=== PATIENT | male | born 1955 | race Caucasian/White ===

== ENCOUNTER → 2017-06-16 15:47 | Outpatient (CLI) | payer OTHER, SELFPAY ==
--- NOTE | 2017-06-16 15:54 | RAD_ITS ---
STUDY: X-RAY - LEFT SHOULDER REASON FOR EXAM: Male, 61 years old. Fell on shoulder x1 week, shoulder pain TECHNIQUE: 5 view(s) of the shoulder. COMPARISON: None. FINDINGS: Normal glenohumeral articulation. There is severe hypertrophic osteoarthrosis of the acromioclavicular joint with inferior osseous spur formation. Normal acromion. Normal humeral head and visualized proximal humerus. The soft tissue structures are unremarkable. Normal visualized pulmonary apex. RAD/Shoulder min 2 Views IMPRESSION: There is no acute displaced fracture or dislocation. Severe hypertrophic osteoarthrosis of the AC joint. Electronically Signed: Cecy Baum MD at 4:10 EDT , Service support ,
== END ==
PROVIDERS: Visit Provider Family Medicine
DX: M19.012 Primary osteoarthritis, left shoulder (principal)
CPT/HCPCS: 73030

== ENCOUNTER → 2017-10-29 07:13 | Outpatient (CLI) | payer OTHER, SELFPAY ==
[2017-10-29 08:11] LABS: ALB/GLOB Ratio 1.2 RATIO (0.9-2.4); AST(SGOT) 59 U/L (15-37); Alanine Aminotransfer ALT/SGPT 82 U/L (16-61); Albumin, Serum 3.9 g/dL (3.2-5.0); Alkaline Phosphatase 94 U/L (45-117); Anion Gap 8 (5-15); BUN 24 mg/dL (7-18); Calcium,Total 9.1 mg/dL (8.5-10.1); Chloride 106 mmol/L (98-107); Cholesterol 155 mg/dL (200); Creatinine, Serum 0.67 mg/dL (0.70-1.30); EST Glomerular Filtration Rate 128 mL/min (>60); Est Glom Filt Rate - Afr Amer 155 mL/min (>60); Globulin 3.3 g/dL (2.2-4.2); Glucose 94 mg/dL (74-106); High Density Lipoprotein 59 mg/dL; PSA,Total - Annual Screen 1.29 ng/mL (0.00-4.00); Potassium 4.1 mmol/L (3.5-5.1); Protein, Total 7.2 g/dL (6.4-8.2); Sodium Level 141 mmol/L (136-145); Triglycerides 72 mg/dL; Uric Acid 4.1 mg/dL (3.5-7.2); Very Low Density Lipoprotein 14 mg/dL (5-40)
== END ==
DX: Z00.00 Encounter for general adult medical examination without abnormal findings (principal); Z12.5 Encounter for screening for malignant neoplasm of prostate
CPT/HCPCS: 36415; 80053; 80061; 84153; 84550; G0103

== ENCOUNTER → 2019-10-16 10:31 | Outpatient (CLI) | payer OTHER, SELFPAY ==
[2019-10-16 11:20] LABS: Absolute Lymphocyte Count 3.51 X10^3/uL (0.83-4.51); Absolute Neutrophil Count 5.1 X10^3/uL (2.0-7.7); Basophil# 0.05 X10^3/uL; Basophil% 0.5 % (0-1); Eosinophil# 0.46 X10^3/uL; Eosinophils% 4.5 % (0-5); Hematocrit 46.7 % (40-54); Hemoglobin 15.6 g/dL (13.0-16.5); Lymphocyte # 3.51 X10^3/ul (4.0); Lymphocyte % 34.6 % (19-41); Mean Corp Hgb Conc 33.4 g/dL (32-36); Mean Corpuscular Hgb 31.5 pg (27.0-32.0); Mean Corpuscular Volume 94.2 fL (80-94); Mean Platelet Vol. 9.1 fl (6.2-12.0); Monocyte# 0.99 X10^3/uL; Monocyte% 9.8 % (0-10); NRBC Flagged by Analyzer 0 % (0-5); Neutrophil % 50.3 % (47-70); Platelet Count 319 K/mm3 (150-450); RBC Distribution Width CV 12.5 % (11.6-14.6); RBC Distribution Width SD 43.1 fl (35.1-43.9); Red Blood Count 4.96 M/mm3 (4.6-6.2); White Blood Count 10.1 K/mm3 (4.4-11.0)
[2019-10-16 11:32] LABS: Prothrombin Time (Protime)PT. 12.6 SECONDS (11.7-14.9)
[2019-10-16 11:33] LABS: Partial Thromboplast Time 28.7 Seconds (24.1-36.2)
[2019-10-16 11:59] LABS: ALB/GLOB Ratio 1.4 RATIO (0.9-2.4); AST(SGOT) 45 U/L (15-37); Alanine Aminotransfer ALT/SGPT 48 U/L (16-61); Albumin, Serum 4.1 g/dL (3.2-5.0); Alkaline Phosphatase 105 U/L (45-117); Anion Gap 6 (5-15); BUN 12 mg/dL (7-18); BUN/Creat Ratio 19.4 RATIO (10-20); Calcium,Total 9.5 mg/dL (8.5-10.1); Chloride 107 mmol/L (98-107); Cholesterol 194 mg/dL (200); Creatinine, Serum 0.62 mg/dL (0.70-1.30); EST Glomerular Filtration Rate 139 mL/min (>60); Est Glom Filt Rate - Afr Amer 168 mL/min (>60); Glucose 105 mg/dL (74-106); High Density Lipoprotein 63 mg/dL; PSA,Total - Annual Screen 1.08 ng/mL (0.00-4.00); Potassium 4.2 mmol/L (3.5-5.1); Protein, Total 7.1 g/dL (6.4-8.2); Sodium Level 141 mmol/L (136-145); Triglycerides 70 mg/dL; Very Low Density Lipoprotein 14 mg/dL (5-40)
== END ==
PROVIDERS: Referring Provider Family Medicine; Visit Provider Family Medicine
DX: Z01.812 Encounter for preprocedural laboratory examination (principal); Z12.5 Encounter for screening for malignant neoplasm of prostate
CPT/HCPCS: 36415; 80053; 80061; 84153; 85025; 85610; 85730; G0103

== ENCOUNTER 2019-11-29 01:03 | Emergency (ER) | payer OTHER, SELFPAY ==
[2019-11-29 01:04] VITALS: BP 139/89; PULSE 72; RESP 18; TEMP 37.2; O2SAT 96; BMI 32.0
[2019-11-29] MEDS: Bupivacaine Mpf 0.5% 30 ML VIAL INFILT (01:16)
--- NOTE | 2019-11-29 02:30 | ED.DCSUM_ITS ---
History of Present Illness Chief Complaint: Laceration Informant: Patient Onset: Today Context: Sudden Onset Timing: Continuous Current Severity: Mild Maximum Severity: Mild Narrative: The patient is a 64-year-old male who was in his normal state of health that presents to the emergency department with right ear laceration. The patient recently had a knee replacement. He states that his balance is mildly unsteady's from this. He got up to use the restroom and lost his balance in the hallway. He fell striking his right ear against a potted plant. He had immedia te pain and bleeding. He did not lose consciousness. He denies any headache or visual change. He is on baby aspirin since his knee replacement but no other anticoagulants. He presented here immediately for evaluation. Prior similar symptoms: No Recent Illness/Hospitalization: No Past Medical History - Allergies and Home Meds Allergies/Adverse Reactions: Allergies codeine Allergy (Verified 11/29/19 01:06) Rash Primary Care Physician: Lamont Kim MD [Primary Care Provider] - 3-5 Days Prior records reviewed: Yes Past Medical History: - - Hypertension, arthritis Surgical History: noncontributory Smoking Status: Never smoker Review of Systems General: Denies: Chills, Fever, Sweats Eyes: Denies: Visual changes - bilaterally, Diplopia ENT: Denies: Rhinorrhea, Sore throat Cardiovascular: Denies: Chest pain, Palpitations Respiratory: Denies: Dyspnea, Cough, Dyspnea on exertion Gastrointestinal: Denies: Abdominal pain, Nausea, Vomiting, Diarrhea, Melena, Hematochezia Genitourinary: Denies: Dysuria, Hematuria, Frequency Musculoskeletal: Denies: Back pain, Extremity Pain Skin: Denies: Rash, Wounds Neurological: Denies: Headache, Weakness, Numbness Physical Exam Vital Signs/Narrative: Vital Signs Temp Pulse Resp BP Pulse Ox 11/29/19 01:04 98.9 F 72 18 139/89 H 96 Inital Vital Signs reviewed: Yes General: Well nourished, Well developed, No Acute Distress Head: Normocephalic, Atraumatic Eyes: Perrl, EOMI ENT: Moist mucous membranes, No rhinorrhea, - - Patient has full-thickness laceration from the helix of the ear. It is 3 cm in total length. It does involve the cartilage. The drum itself is intact. Neck: Supple, Nontender Cardiovascular: Regular rate, Regular rhythm, No murmurs Respiratory: No distress, CTA bilaterally, Chest nontender Abdomen: Soft, Nontender, Nondistended, Normal bowel sounds Back: Nontender, Normal Inspection Extremities: Nontender, No edema Skin: Normal color, No rash Neurological: Alert, Oriented x3, Cranial nerves II-XII grossly intact, Normal Strength, Normal Sensation Psychological: Normal affect, Normal Mood Diagnostic/Tx/Re-eval - Medical Decision Making Patient presents with complexly ear laceration. There is laceration through the cartilaginous process. It is approximately at the 8 o'clock position of the ear. 3 cc bupivacaine were injected locally. The wound was irrigated and explored. The cartilage was reapproximated with 2 simple 5-0 Vicryl absorbable suture. The attention was then turned to the skin defect of the through and through. It was repaired with 14 5-0 rapid absorbing gut suture. There was no evidence of hematoma. Hemostasis was achieved. There was good reapproximation of the skin. As there was cartilage defect, the patient will be placed on Keflex. I will have him follow-up for wound reevaluation in 3 to 5 days. He was also counseled that this is worsening or painful or have any drainage that he should return. He is comfortable with this plan of care. Impression 1. Complex 4 cm right ear laceration with layered repair ED Disposition - Plan for ED Patient: Instructions: ED Laceration All Closures Prescriptions: Cephalexin [Keflex] 500 mg PO Q12 #14 cap Prescription Printed Referrals: Lamont Kim MD [Primary Care Provider] - 3-5 Days
[2019-11-29] MEDS: Cephalexin 250 MG Capsule 500 MG PO (02:37)
[2019-11-29 02:38] VITALS: PULSE 72; RESP 16; O2SAT 97
== END 2019-11-29 02:40 | disposition home or self-care (01) ==
LOC: ED 01:17
PROVIDERS: Emergency Provider Emergency Medicine; PCP Family Medicine
DX: S01.311A Laceration without foreign body of right ear, initial encounter (principal); W18.39XA Other fall on same level, initial encounter; Y93.01 Activity, walking, marching and hiking; Y92.9 Unspecified place or not applicable; I10 Essential (primary) hypertension; M19.90 Unspecified osteoarthritis, unspecified site; Z79.82 Long term (current) use of aspirin; Z79.899 Other long term (current) drug therapy
CPT/HCPCS: 12052; 99283

== ENCOUNTER → 2019-12-24 10:56 | Outpatient (CLI) | payer OTHER, SELFPAY ==
[2019-11-29 01:04] VITALS: BMI 32.0
--- NOTE | 2019-12-24 10:58 | VDLE_ITS ---
Reason For Study: pain RIGHT GSV is normal. CFV is compressible, spontaneous, phasic, competent and demonstrates normal augmentation. FV is compressible, spontaneous, phasic, competent and demonstrates normal augmentation. POP V is compressible, spontaneous, phasic, competent and demonstrates normal augmentation. T/P Trunk is compressible. PTV is compressible. RT PerV is compressible. Procedure This is a venous duplex using B-mode, color flow and spectral Doppler. Exam performed in department. The exam was abbreviated due to the COVID 19 protocol. The exam was diagnostic. A preliminary report was called and/or faxed to Edvin Lira. Interpretation Summary Deep veins of the right lower extremity are patent and compressible segmentally. There is no evidence of right lower extremity deep vein thrombosis. Valvular competence appears intact within the proximal deep venous system on the right . The right great saphenous vein appears patent and compressible segmentally. Ordering Physician: Edvin Lira Performed By: Speedy Brito RVT
== END ==
PROVIDERS: PCP Family Medicine; Referring Provider Physician Assistant Surgical; Visit Provider Physician Assistant Surgical
DX: M79.661 Pain in right lower leg (principal)
CPT/HCPCS: 93971

== ENCOUNTER → 2020-01-13 15:24 | Outpatient (CLI) | payer OTHER, SELFPAY ==
--- NOTE | 2020-01-13 15:26 | CT_ITS ---
HISTORY: Right knee replacement. No comparison imaging of the right knee. Technique: Contiguous helical images were obtained from the right iliac wing to the foot. Sagittal and coronal 2-D reformats. 1768 images Comparison imaging of the left leg is present from August 23, 2014 angiogram. Some of the right leg is available on that exam. Findings: Anterior subluxation of L5 on S1 with degenerative disc disease. Some right SI joint arthritis. Some right patellofemoral arthritis. The urinary bladder is mostly decompressed. Calcifications are present within the prostate. Within the distal third diaphysis of the right femur there are some popcorn-like calcification centrally within the medullary cavity consistent with a sclerotic enchondroma. There is no endosteal scalloping. There is no erosion of bone. There is no soft tissue component. There is no associated fracture. Tricompartment knee osteoarthritis is present. Chondrocalcinosis. Osteophytes. Joint space loss. Tiny knee effusion. Patellofemoral arthritis with lateral subluxation of the patella on the trochlear groove. Atherosclerosis. No osseous erosion. CT/Extremity Lower without Contra IMPRESSION: Benign-appearing enchondroma within the distal third diaphysis of the left femur. Tricompartment left knee arthritis. Individualized dose optimization techniques were used for this CT. at 0501 Reported and signed by: Castro Ohara MD Electronically Signed: Castro Ohara MD at 5:00 EST Tel , Service support ,
== END ==
PROVIDERS: PCP Family Medicine; Referring Provider Specialist; Visit Provider Specialist
DX: M21.161 Varus deformity, not elsewhere classified, right knee (principal)
CPT/HCPCS: 73700

== ENCOUNTER → 2020-01-29 09:58 | Outpatient (CLI) | payer OTHER, SELFPAY ==
[2020-01-29 10:32] LABS: Absolute Lymphocyte Count 3.19 X10^3/uL (0.83-4.51); Absolute Neutrophil Count 6.9 X10^3/uL (2.0-7.7); Basophil# 0.04 X10^3/uL; Basophil% 0.3 % (0-1); Eosinophil# 0.36 X10^3/uL; Eosinophils% 3.1 % (0-5); Hematocrit 43.5 % (40-54); Hemoglobin 14.2 g/dL (13.0-16.5); Lymphocyte # 3.19 X10^3/ul (4.0); Lymphocyte % 27.6 % (19-41); Mean Corp Hgb Conc 32.6 g/dL (32-36); Mean Corpuscular Hgb 31.5 pg (27.0-32.0); Mean Corpuscular Volume 96.5 fL (80-94); Mean Platelet Vol. 8.7 fl (6.2-12.0); Monocyte% 8.7 % (0-10); NRBC Flagged by Analyzer 0 % (0-5); Neutrophil # 6.91 X10^3/uL (2.7-7.7); Neutrophil % 59.8 % (47-70); Platelet Count 356 K/mm3 (150-450); RBC Distribution Width CV 12.8 % (11.6-14.6); RBC Distribution Width SD 45.3 fl (35.1-43.9); Red Blood Count 4.51 M/mm3 (4.6-6.2); White Blood Count 11.6 K/mm3 (4.4-11.0)
[2020-01-29 10:42] LABS: Anion Gap 3 (5-15); BUN 14 mg/dL (7-18); BUN/Creat Ratio 20.1 RATIO (10-20); Calcium,Total 9.2 mg/dL (8.5-10.1); Chloride 109 mmol/L (98-107); EST Glomerular Filtration Rate 121 mL/min (>60); Est Glom Filt Rate - Afr Amer 147 mL/min (>60); Glucose 104 mg/dL (74-106); Potassium 4.1 mmol/L (3.5-5.1); Sodium Level 142 mmol/L (136-145)
== END ==
PROVIDERS: PCP Family Medicine; Referring Provider Specialist; Visit Provider Specialist
DX: Z01.812 Encounter for preprocedural laboratory examination (principal); Z79.01 Long term (current) use of anticoagulants
CPT/HCPCS: 36415; 80048; 85025

== ENCOUNTER → 2020-02-09 | Outpatient (CLI) | payer OTHER, SELFPAY ==
[2020-02-09 13:30] LABS: Absolute Lymphocyte Count 3.93 X10^3/uL (0.83-4.51); Absolute Neutrophil Count 10.5 X10^3/uL (2.0-7.7); Basophil# 0.03 X10^3/uL; Basophil% 0.2 % (0-1); Eosinophil# 0.07 X10^3/uL; Eosinophils% 0.4 % (0-5); Lymphocyte # 3.93 X10^3/ul (4.0); Lymphocyte % 23.4 % (19-41); Mean Corp Hgb Conc 32.5 g/dL (32-36); Mean Corpuscular Hgb 31.1 pg (27.0-32.0); Mean Corpuscular Volume 95.7 fL (80-94); Mean Platelet Vol. 9.2 fl (6.2-12.0); Monocyte# 2.15 X10^3/uL; Monocyte% 12.8 % (0-10); NRBC Flagged by Analyzer 0 % (0-5); Neutrophil # 10.54 X10^3/uL (2.7-7.7); Neutrophil % 62.8 % (47-70); POSITIVE DIFFERENTIAL YES; Platelet Count 348 K/mm3 (150-450); RBC Distribution Width CV 13.2 % (11.6-14.6); RBC Distribution Width SD 46.7 fl (35.1-43.9); Red Blood Count 4.18 M/mm3 (4.6-6.2); White Blood Count 16.8 K/mm3 (4.4-11.0)
[2020-02-09 13:31] LABS: Differential Indicated SCAN CRITERIA MET
[2020-02-09 13:51] LABS: ALB/GLOB Ratio 1.2 RATIO (0.9-2.4); AST(SGOT) 273 U/L (15-37); Alanine Aminotransfer ALT/SGPT 371 U/L (16-61); Albumin, Serum 3.6 g/dL (3.2-5.0); Alkaline Phosphatase 193 U/L (45-117); Anion Gap 5 (5-15); BUN 16 mg/dL (7-18); BUN/Creat Ratio 24.5 RATIO (10-20); CPK Total, Creatine Kinase 330 U/L (39-308); Calcium,Total 9.5 mg/dL (8.5-10.1); Chloride 106 mmol/L (98-107); Creatinine, Serum 0.65 mg/dL (0.70-1.30); EST Glomerular Filtration Rate 131 mL/min (>60); Est Glom Filt Rate - Afr Amer 158 mL/min (>60); Globulin 3.1 g/dL (2.2-4.2); Glucose 89 mg/dL (74-106); Potassium 3.7 mmol/L (3.5-5.1); Protein, Total 6.7 g/dL (6.4-8.2); Sodium Level 139 mmol/L (136-145); Thyroid Stim Hormone (TSH) 1.11 uIU/mL (0.358-3.74)
[2020-02-10 12:06] LABS: Pathologist Review Reviewed
== END | disposition home or self-care (01) ==
LOC: LABSPEC 13:15
PROVIDERS: PCP Family Medicine; Referring Provider Nurse Practitioner; Visit Provider Nurse Practitioner
DX: I48.91 Unspecified atrial fibrillation (principal)
CPT/HCPCS: 80053; 82550; 84443; 84484; 85025

== ENCOUNTER → 2020-02-28 09:42 | Outpatient (CLI) | payer OTHER, SELFPAY ==
[2020-02-11 12:33] VITALS: BMI 29.1
--- NOTE | 2020-02-28 09:44 | ECHOD_ITS ---
Reason For Study: AFIB Procedure This was a 2D Doppler, Color Flow transthoracic echocardiogram. Exam performed in department. Left Ventricle Normal LV size. Left ventricular systolic function is normal. The estimated ejection fraction is 65 %. No regional wall motion abnormalities noted. Atria The left atrium is moderately enlarged. Normal right atrium. Tricuspid Valve Normal tricuspid valve. Mild tricuspid valve insufficiency. Pulmonary artery systolic pressure is 38 mmHg. Aortic Valve Trisinus/trileaflet aortic valve. Mild (1+) aortic valve insufficiency. Pulmonic Valve Normal pulmonic valve. Great Vessels Normal aortic root. The pulmonary artery is normal size. Normal inferior vena cava. Pericardium/Pleural No pericardial effusion. MMode/2D Measurements & Calculations LVIDd: 4.9 cm IVSd: 0.95 cm Ao root diam: 4.4 cm LVIDs: 3.2 cm LVPWd: 1.0 cm RVDd: 3.7 cm FS: 34.4 % LAV(MOD-bp): 97.6 ml LA A4 area: 25.7 cm2 LA dimension(2D): 4.8 cm LAV(MOD-bp) Indexed: 44.0 ml/m2 LAV(MOD-sp2): 105.4 ml LAV(MOD-sp4): 84.4 ml RA A4 area: 21.5 cm2 Time Measurements MV dec time: 0.13 sec Doppler Measurements & Calculations MV E max karena: 97.7 cm/sec Ao V2 max: 169.7 cm/sec AI max karena: 525.6 cm/sec Ao max P.8 mmHg AI max P.5 mmHg AI dec slope: 299.3 cm/sec2 AI P1/2t: 514.4 msec LV V1 max: 130.6 cm/sec PA V2 max: 126.0 cm/sec TR max karena: 294.6 cm/sec LV V1 max P.4 mmHg TR max P.7 mmHg Interpretation Summary Normal LV size. Left ventricular systolic function is normal. The estimated ejection fraction is 65 %. Mild (1+) aortic valve insufficiency. Mild tricuspid valve insufficiency. Ordering Physician: Randal Friedman Referring Physician: DRAKE MENDOZA Performed By: Akila Haney, RANJAN, RVT
== END ==
PROVIDERS: PCP Family Medicine; Referring Provider Internal Medicine Cardiovascular Disease; Visit Provider Internal Medicine Cardiovascular Disease
DX: I48.0 Paroxysmal atrial fibrillation (principal); I48.92 Unspecified atrial flutter
CPT/HCPCS: 93306

== ENCOUNTER → 2020-03-10 09:58 | Outpatient (CLI) | payer OTHER, SELFPAY ==
[2020-03-10 08:11] VITALS: BMI 29.5
[2020-03-10 12:08] LABS: Anion Gap 5 (5-15); BUN 15 mg/dL (7-18); BUN/Creat Ratio 23.3 RATIO (10-20); Calcium,Total 9.7 mg/dL (8.5-10.1); Chloride 106 mmol/L (98-107); Creatinine, Serum 0.64 mg/dL (0.70-1.30); EST Glomerular Filtration Rate 133 mL/min (>60); Est Glom Filt Rate - Afr Amer 161 mL/min (>60); Glucose 103 mg/dL (74-106); Potassium 4.2 mmol/L (3.5-5.1); Sodium Level 141 mmol/L (136-145)
== END ==
PROVIDERS: PCP Family Medicine; Referring Provider Internal Medicine Cardiovascular Disease; Visit Provider Internal Medicine Cardiovascular Disease
DX: I48.91 Unspecified atrial fibrillation (principal)
CPT/HCPCS: 36415; 80048

== ENCOUNTER 2020-03-14 10:38 | Day surgery (SDC) | payer OTHER, SELFPAY ==
[2020-03-10 08:11] VITALS: BMI 29.5
[2020-03-13 09:29] VITALS: BMI 29.5
--- NOTE | 2020-03-14 05:00 | HP_ITS ---
HPI HPI History of Present Illness Details: Pleasant 64-year-old man with no previous cardiac history other than hypertension and hyperlipidemia obstructive sleep apnea who presents for evaluation of his atrial fibrillation which appears to be recent onset. He was scheduled to have right total knee replacement and went into atrial fibrillation. This was completely unbeknownst to him he denies any chest pain or shortness with paroxysmal nocturnal dyspnea pedal edema no neck arm or jaw discomfort suggest angina no dizziness or diaphoresis no near syncope or syncope. He has been compliant with his medications. He returns for follow-up visit. He has been on anticoagulation since his last visit. He did have an echocardiogram performed which demonstrated preserved ejection fraction and normal atrial size. His estimated EF was 65%. His physical exam today is unremarkable. Intake Vital Signs 03/10/20 Height 6 ft 1 in 03/10/20 Weight: 224 lb 03/10/20 BMI 29.5 03/10/20 BP 137/94 H 03/10/20 Respiration 16 03/10/20 Pulse 96 03/10/20 Pulse Oximetry (%) 98 Intake Visit Reasons: 5 wk f/up Allergies codeine Allergy (Verified 03/10/20 08:11) Rash Medications Albuterol Inhaler [Ventolin Hfa (SP)] 1 - 2 puff INHALATION Q4H PRN PRN 08/23/14 [History Confirmed 03/10/20] Allopurinol [Zyloprim] 100 mg PO DAILYCM 08/23/14 [History Confirmed 03/10/20] Montelukast [Singulair] 10 mg PO DAILY 08/23/14 [History Confirmed 03/10/20] Sertraline HCl [Zoloft] 100 mg PO DAILY 08/23/14 [History Confirmed 03/10/20] Zolpidem Tartrate [Ambien] 10 mg PO QHS 08/23/14 [History Confirmed 03/10/20] apixaban 5 mg tablet 5 mg PO BID 02/11/20 [History Confirmed 03/10/20] atenolol 25 mg tablet 25 mg PO DAILY 02/11/20 [History Confirmed 03/10/20] diphenhydramine HCl 50 mg capsule 50 mg PO QHS 02/11/20 [History Confirmed 03/10/20] famotidine 20 mg tablet 20 mg PO DAILY 02/11/20 [History Confirmed 03/10/20] fexofenadine 180 mg tablet 180 mg PO DAILY 02/11/20 [History Confirmed 03/10/20] fluticasone furoate 100 mcg-vilanterol 25 mcg/dose inhalation powder 1 inh INHALATION Q24H 02/11/20 [History Confirmed 03/10/20] lovastatin 20 mg tablet 20 mg PO QHS tab 02/11/20 [History Confirmed 03/10/20] oxycodone 5 mg tablet 5 mg PO Q6H PRN tab 02/11/20 [History Confirmed 03/10/20] valsartan 160 mg-hydrochlorothiazide 12.5 mg tablet 1 tab PO DAILY 02/11/20 [History Confirmed 03/10/20] Ejection fraction %: 65 to 70 PFSH Medical History New onset atrial fibrillation (Chronic 02/2020) Hyperlipidemia (Chronic) Essential (primary) hypertension (Chronic) Anxiety and depression (Chronic) Asthma (Chronic) Charcot's joint of foot (Chronic) Gout (Chronic) Neuropathy (Chronic) Obesity (Chronic) Obstructive sleep apnea (Chronic) Postoperative atrial fibrillation (Chronic 02/08/20) Surgical History History of foot surgery (Resolved) History of total knee arthroplasty (Resolved 02/08/20) Family History Father Hypertension Atrial fibrillation Mother Hypertension Grandmother Diabetes maternal Cancer Grandfather Cancer maternal Social History (Updated 03/10/20 @ 09:[address] Randal Friedman MD) Smoking Status: Current some day smoker tobacco type: cigars ROS Const Const: Positive for fatigue and weakness; negative for headache(s), frequent falls, difficulty sleeping or excessive sweating Eyes Eyes: Negative for loss of peripheral vision, transient loss of vision, blurry vision, double vision or tunnel vision ENT ENT: Negative for headache(s), dizziness, Nosebleed/epistaxis or balance problems Cardio Chest Pain: No Palpitations: No Edema: None Muscle aches with walking: None Additional Details: Feeling fatigued and SOB with activity d/t increase HR Resp Respiratory: Negative for SOB with activity, SOB at rest, SOB orthopnea\SOB lying down, Cough or paroxysmal nocturnal dyspnea GI GI: Negative nausea, vomiting, heartburn or black,tarry stools : Negative for hematuria Musc Musc: Positive for joint pain (right knee); negative for muscle aches/ myalgia, muscle weakness or balance problems Skin Skin: Negative non-healing lesions, rash or unusual bruising Neuro Neuro: Positive for weakness; negative for dizziness, lightheadedness, near syncope, syncope, orthostatic symptoms, frequent falls, headache(s), blurry vision, double vision or lack of coordination Jagjit Hematologic/Lymphatic: Negative for easy bleeding or easy bruising Endo Endo: Positive for fatigue; negative for excessive sweating or increased thirst/drinking Psych Psych: Negative for anxiety or depression Allergy Allergy/Immunology: Negative for hives, Negative for rash Cardiology Exam Const Appearance: cooperative, healthy appearing, no acute distress, well developed and well groomed Nutritional Appearance: average body habitus and well nourished Orientation: alert, awake and oriented x3 Head Head: normal to inspection, normocephalic and atraumatic Ears: hearing grossly normal bilaterally and external ears normal Nose: external nose normal, nares normal, nasal mucous membranes and turbinates normal, septum normal, no nasal discharge Face and Sinus: face symmetric Mouth: oral mucosae normal, tongue normal, oropharynx normal and moist mucous membranes Teeth and gingiva: dentition normal Throat: posterior oropharynx normal, tonsils normal and uvula midline Eyes General: appearance normal, both eyes and all related structures Eyelids: eyelids normal Conjunctivae: conjunctivae normal Pupils: PERRL, normal by confrontation and accommodation normal EOM: EOM intact bilaterally Neck Neck: normal visual inspection, trachea midline and no JVD JVD: +5 Carotids: normal carotid upstroke and bounding pulses Chest Chest inspection: normal inspection of the chest, symmetric chest movement and normal respiratory effort Auscultation: Bilateral: Clear to Auscultation Cardio Palpation: normal PMI Rate: regular rate Rhythm: irregular rhythm Heart sounds: S1 normal, S2 normal and normal, physiologic split S2; negative rub, gallop or murmur GI GI: normal to inspection, soft, no hepatosplenomegaly and bowel sounds present Neuro General: alert, awake, oriented x3, gait normal, moves all extremities and no focal sensory deficit Skin Skin: no rashes or lesions noted Extremities Pulses: Normal: Right Femoral Pulse, Left Femoral Pulse, Right Dorsalis Pedis Pulse, Left Dorsalis Pedis Pulse, Right Posterior Tibial Pulse, Left Posterior Tibial Pulse, Right Radial Pulse, Left Radial Pulse Lower Extremity Edema: None: Bilateral Musculoskel Musculoskeletal: No joint tenderness Psych Psychological: normal affect Assessment & Plan 1. New onset atrial fibrillation I48.91 Plan He appears to have recent onset atrial fibrillation with a controlled ventricular response rate. My recommendation at this time is for him to undergo a DC cardioversion. The risk benefits alternatives have been explained to him he understands and agrees to proceed. I have also instructed him that he can take his meloxicam for knee pain. He could take an antacid if he is having any issues. Orders Orders: Cardioversion Today Basic Metabolic Profile (BMP) Today 2. Essential (primary) hypertension I10 Plan Does have a history of hypertension and this appears to be controlled he will continue with his valsartan as well as his beta-felix. Coding Level of Care Code Off vis,est,level 3 Diagnoses New onset atrial fibrillation I48.91 Essential (primary) hypertension I10 Coding Level of Care Code Off vis,est,level 3 Diagnoses New onset atrial fibrillation I48.91 Essential (primary) hypertension I10 Supplemental Info Supplemental Information Labs LDL Cholesterol 117 mg/dL (0-130) 10/16/19 HDL Cholesterol 63 mg/dL (40-) 10/16/19 Triglycerides 70 mg/dL (-199) 10/16/19 VLDL Cholesterol 14 mg/dL (5-40) 10/16/19 Diagnostics Echocardiogram 02/28/20 Venous Doppler Study 12/24/19
--- NOTE | 2020-03-14 12:40 | CARDIOVERS ---
Cardioversion Cardioversion: DC cardioversion. 64-year-old man with a history of persistent atrial fibrillation. The patient was brought to the cardiac catheterization lab in the postabsorptive nonsedated state. Patient was seen by Dr. Hood of the critical care division. Informed consent was obtained. Anterior posterior pads were applied. The patient was then administered 60 mg of intravenous propofol. 200 J of synchronized DC biphasic cardioversion energy were applied. There was prompt reversal to sinus rhythm. However this lasted less than a minute. The patient was then readministered 40 mg of intravenous propofol for total of 100 mg of propofol. 200 J of synchronized DC cardioversion energy were applied with prompt reversal to sinus rhythm. Once again this lasted less than a minute. The procedure was then discontinued. Conclusion and plan. Unsuccessful DC cardioversion and maintaining sinus rhythm. Would recommend starting flecainide 100 mg twice a day for 2 weeks and repeat cardioversion. Continue anticoagulation.
--- NOTE | 2020-03-14 13:57 | PRO.PCM_ITS ---
Procedure Report Date of Procedure: 03/14/20 CONSCIOUS SEDATION REPORT DATE OF SERVICE: March 14, 2020 BRIEF HISTORY OF PRESENT ILLNESS: The patient is a 64-year-old male who presented to [facility] for an elective outpatient cardioversion due to underlying atrial fibrillation. The patient is currently anticoagulated on Eliquis. His last surface echocardiogram revealed an ejection fraction of approximately 65%. The patient denies any known prior anesthetic complications. He does have a history of asthma which is currently controlled on an outpatient maintenance inhaler regimen. He denies a history of obstructive sleep apnea. PHYSICAL EXAMINATION: VITAL SIGNS: Reviewed and were acceptable. GENERAL: The patient is a male, in no apparent distress, speaking in full sentences. HEENT: Normocephalic, atraumatic. Mucous membranes are moist and pink. Good mouth opening noted. Trachea is midline. Good neck mobility. CHEST: S1, S2 irregularly irregular. No murmurs, rubs or gallops were noted. LUNGS: Clear to auscultation bilaterally without appreciable wheezes, rales or rhonchi. ABDOMEN: Soft, nontender, nondistended. Positive bowel sounds. EXTREMITIES: There is no clubbing, cyanosis or edema. ASA Class: II DESCRIPTION OF PROCEDURE: After confirmation of informed consent, the patient's anesthesia plan was reviewed in detail. Propofol was chosen. Risks and benefits were reviewed and the patient agreed to proceed. At 1206, the patient was given his first bolus of propofol. In total, the patient required 100 mg of propofol to achieve an appropriate level of sedation, after which time he received 2 separate attempts at cardioversion, both at 200 J, neither of which was successful in restoring normal sinus rhythm. The patient was monitored until 1217, at which time he reached his baseline mental status and function. The patient tolerated the procedure well. COMPLICATIONS: None ESTIMATED BLOOD LOSS: None RECOMMENDATIONS: Okay to recover in usual fashion. 9xxxx: Other Procedure See Report - [id number]
== END 2020-03-14 13:15 | disposition home or self-care (01) ==
LOC: CLSP 10:39
PROVIDERS: PCP Family Medicine; Referring Provider Internal Medicine Cardiovascular Disease; Visit Provider Internal Medicine Cardiovascular Disease
DX: I48.91 Unspecified atrial fibrillation (principal); I10 Essential (primary) hypertension; E78.5 Hyperlipidemia, unspecified; J45.909 Unspecified asthma, uncomplicated; M1A.9XX0 Chronic gout, unspecified, without tophus (tophi); F32.9 Major depressive disorder, single episode, unspecified; F41.9 Anxiety disorder, unspecified; F17.290 Nicotine dependence, other tobacco product, uncomplicated; E66.9 Obesity, unspecified; Z68.29 Body mass index [BMI] 29.0-29.9, adult; Z79.01 Long term (current) use of anticoagulants; Z79.899 Other long term (current) drug therapy
CPT/HCPCS: 92960; 93005; J7040

== ENCOUNTER 2020-03-28 12:31 | Day surgery (SDC) | payer OTHER, SELFPAY ==
[2020-03-13 09:29] VITALS: BMI 29.5
[2020-03-27 08:57] VITALS: BMI 29.5
--- NOTE | 2020-03-28 13:46 | CARDIOVERS ---
Cardioversion Cardioversion: Procedure: DC cardioversion. 64-year-old male with a history of persistent atrial fibrillation. The patient was brought to cardiac catheterization lab in the postabsorptive nonsedated state. The patient was seen by Dr. Hood of the critical care division. Anterior-posterior pads were applied. Informed consent was obtained. The patient was then administered 80 mg of intravenous propofol. 200 J of synchronized biphasic energy were applied with prompt reversal to sinus rhythm. Patient tolerated the procedure well. Conclusion: Successful DC cardioversion to sinus rhythm. Continue flecainide and Eliquis. Follow-up with office protocol.
--- NOTE | 2020-03-28 13:49 | PRO.PCM_ITS ---
Procedure Report Date of Procedure: 03/28/20 CONSCIOUS SEDATION REPORT DATE OF SERVICE: March 28, 2020 BRIEF HISTORY OF PRESENT ILLNESS: The patient is a 64-year-old male who presented to [facility] for an elective outpatient cardioversion due to underlying atrial fibrillation. The patient did undergo a prior cardioversion on March 14, which was unsuccessful. The patient remains anticoagulated on Eliquis. His last surface echocardiogram revealed an ejection fraction of approximately 65%. The patient denies any known prior anesthetic complications. PHYSICAL EXAMINATION: VITAL SIGNS: Reviewed and were acceptable. GENERAL: The patient is a male, in no apparent distress, speaking in full sentences. HEENT: Normocephalic, atraumatic. Mucous membranes are moist and pink. Good mouth opening noted. Trachea is midline. Good neck mobility. CHEST: S1, S2 irregularly irregular. No murmurs, rubs or gallops were noted. LUNGS: Clear to auscultation bilaterally without appreciable wheezes, rales or rhonchi. ABDOMEN: Soft, nontender, nondistended. Positive bowel sounds. EXTREMITIES: There is no clubbing, cyanosis or edema. ASA Class: II DESCRIPTION OF PROCEDURE: After confirmation of informed consent, the patient's anesthesia plan was reviewed in detail. Propofol was chosen. Risks and benefits were reviewed and the patient agreed to proceed. At 1337, the patient was given his first bolus of propofol. In total, the patient required 80 mg of propofol to achieve an appropriate level of sedation, after which time, he received a 200 J synchronized cardioversion by Dr. Friedman at the bedside. This was successful in achieving normal sinus rhythm. The patient was monitored until 1348, at which time he reached his baseline mental status and function. The patient tolerated the procedure well. COMPLICATIONS: None ESTIMATED BLOOD LOSS: None RECOMMENDATIONS: Okay to recover in usual fashion. 9xxxx: Other Procedure See Report - [id number]
== END 2020-03-28 14:44 | disposition home or self-care (01) ==
LOC: CLSP 12:31
PROVIDERS: PCP Family Medicine; Referring Provider Internal Medicine Cardiovascular Disease; Visit Provider Internal Medicine Cardiovascular Disease
DX: I48.19 Other persistent atrial fibrillation (principal); I10 Essential (primary) hypertension; E78.5 Hyperlipidemia, unspecified; G47.33 Obstructive sleep apnea (adult) (pediatric); F41.9 Anxiety disorder, unspecified; F32.9 Major depressive disorder, single episode, unspecified; M10.9 Gout, unspecified; E66.9 Obesity, unspecified; Z68.29 Body mass index [BMI] 29.0-29.9, adult; J45.909 Unspecified asthma, uncomplicated; G62.9 Polyneuropathy, unspecified; Z79.01 Long term (current) use of anticoagulants; Z79.899 Other long term (current) drug therapy
CPT/HCPCS: 92960; 93005; J7040

== ENCOUNTER → 2020-07-10 12:54 | Outpatient (CLI) | payer OTHER, SELFPAY ==
[2020-03-27 08:57] VITALS: BMI 29.5
--- NOTE | 2020-07-10 12:56 | ECHOD_ITS ---
Reason For Study: AFIB Procedure This was a 2D Doppler, Color Flow transthoracic echocardiogram. Exam performed in department. Left Ventricle Normal LV size. Left ventricular systolic function is normal. The estimated ejection fraction is 60 %. No regional wall motion abnormalities noted. Right Ventricle Normal RV size. Normal systolic function. Atria The left atrium is moderately enlarged. Normal right atrium. Mitral Valve Normal mitral valve. Tricuspid Valve Normal tricuspid valve. Mild (1+) tricuspid valve insufficiency. Pulmonary artery systolic pressure is 38 mmHg. Aortic Valve Normal aortic valve. Trisinus/trileaflet aortic valve. Mild (1+) aortic valve insufficiency. Pulmonic Valve Normal pulmonic valve. Great Vessels Normal aortic root. Pericardium/Pleural No pericardial effusion. MMode/2D Measurements & Calculations LVIDd: 5.2 cm IVSd: 0.91 cm Ao root diam: 4.0 cm LVIDs: 3.6 cm LVPWd: 0.88 cm RVDd: 3.1 cm FS: 31.4 % LAV(MOD-bp): 95.2 ml LA A4 area: 29.6 cm2 LA dimension(2D): 4.2 cm LAV(MOD-bp) Indexed: 42.9 ml/m2 LAV(MOD-sp2): 84.6 ml LAV(MOD-sp4): 102.7 ml RA A4 area: 15.4 cm2 Time Measurements MV dec time: 0.17 sec Doppler Measurements & Calculations MV E max alexis: 90.7 cm/sec Lat Peak E' Alexis: 9.7 cm/sec Med Peak E' Alexis: 6.9 cm/sec MV A max alexis: 69.1 cm/sec E/E' lat: 9.4 E/E' med: 13.1 MV E/A: 1.3 Ao V2 max: 153.9 cm/sec AI max alexis: 527.2 cm/sec LV V1 max: 143.7 cm/sec Ao max P.5 mmHg AI max P.2 mmHg LV V1 max P.3 mmHg AI dec slope: 327.5 cm/sec2 AI P1/2t: 471.6 msec TR max alexis: 292.4 cm/sec TR max P.2 mmHg ECHO/Echo Complete Interpretation Summary Normal LV size. Left ventricular systolic function is normal. The estimated ejection fraction is 60 %. The left atrium is moderately enlarged. Trisinus/trileaflet aortic valve. Mild (1+) aortic valve insufficiency. Ordering Physician: Randal Friedman Referring Physician: DRAKE MENDOZA Performed By: Akila Haney, RDCS, RVT
== END ==
PROVIDERS: PCP Family Medicine; Referring Provider Internal Medicine Cardiovascular Disease; Visit Provider Internal Medicine Cardiovascular Disease
DX: I48.11 Longstanding persistent atrial fibrillation (principal); R06.00 Dyspnea, unspecified
CPT/HCPCS: 93225; 93226; 93306

== ENCOUNTER → 2020-10-26 06:47 | Outpatient (CLI) | payer OTHER, SELFPAY ==
[2020-09-21 08:31] VITALS: BMI 31.1
--- NOTE | 2020-10-26 18:37 | STRESSREP ---
Stress Test Report Pharmacologic myocardial perfusion stress test. 64-year-old man with a history of chest pain. Stress protocol: Resting EKG demonstrates normal sinus rhythm with a rate of 71 bpm normal intervals are noted. 0.4 mg of regadenoson was infused per usual protocol followed by rapid intravenous saline flush injection continuous EKG monitoring was performed. The maximum heart rate attained was 85 bpm which was 54% of maximum predicted heart rate the maximum workload attained was 1 metabolic equivalent. At rest there were no ST or T wave changes noted to suggest abnormal flow reserve and at peak infusion nonspecific ST changes were noted with did not meet the criteria for ischemia. No clinical angina was noted. Myocardial perfusion protocol. 15.0 mCi of technetium 99m sestamibi was injected at rest. 0.4 mg of regadenoson was infused per usual protocol. At peak infusion 45.0 mCi of technetium 99m sestamibi was injected stress images were obtained stress and rest images were reconstructed and compared in the short axis vertical long and horizontal long axis. Gated images were also obtained. Perfusion SPECT analysis: Review of the stress images demonstrated normal uptake of tracer noted in all areas of the myocardium. The resting images similarly demonstrated normal uptake of tracer noted in all areas of the myocardium. No areas of reversibility are noted to suggest ischemia and no previous infarct is noted. Gated SPECT analysis: The gated ejection fraction is 60%. Conclusion: Normal pharmacologic myocardial perfusion stress test. Preserved ejection fraction.
== END ==
PROVIDERS: PCP Family Medicine; Referring Provider Physician Assistant Medical; Visit Provider Physician Assistant Medical
DX: R07.9 Chest pain, unspecified (principal); R61 Generalized hyperhidrosis; I10 Essential (primary) hypertension; I48.0 Paroxysmal atrial fibrillation
CPT/HCPCS: 78452; 93017; A9500; A4216; J2785

== ENCOUNTER → 2021-02-26 09:12 | Outpatient (CLI) | payer OTHER, SELFPAY ==
[2021-02-26 12:29] LABS: Vitamin D,25 Hydroxy 33.8 ng/mL
[2021-02-26 12:56] LABS: Anion Gap 5 (5-15); BUN 13 mg/dL (7-18); BUN/Creat Ratio 21.3 RATIO (10-20); Calcium,Total 9.4 mg/dL (8.5-10.1); Chloride 107 mmol/L (98-107); Cholesterol 172 mg/dL (200); Creatinine, Serum 0.61 mg/dL (0.70-1.30); EST Glomerular Filtration Rate 141 mL/min (>60); Est Glom Filt Rate - Afr Amer 171 mL/min (>60); Glucose 108 mg/dL (74-106); High Density Lipoprotein 55 mg/dL; PSA,Total- Diagnostic 1.75 ng/mL (0.0-4.0); Potassium 3.9 mmol/L (3.5-5.1); Sodium Level 141 mmol/L (136-145); Triglycerides 66 mg/dL; Very Low Density Lipoprotein 13 mg/dL (5-40)
== END ==
PROVIDERS: PCP Family Medicine; Visit Provider Family Medicine
DX: Z00.00 Encounter for general adult medical examination without abnormal findings (principal)
CPT/HCPCS: 36415; 80048; 80061; 82306; 84153; 84403; 84443

== ENCOUNTER → 2021-08-27 | Outpatient (CLI) | payer OTHER, SELFPAY ==
--- NOTE | 2021-08-27 14:12 | RAD_ITS ---
EXAM: XR BILATERAL HIPS WITH PELVIS WHEN PERFORMED, 2 VIEWS CLINICAL INDICATION: LEFT HIP PAIN TECHNIQUE: Frontal view of the bilateral hips with pelvis when performed. This report was created using [employer] report generation technology. COMPARISON: None. FINDINGS: BONES/JOINTS: There are severe degenerative changes in the left hip with complete loss of joint space and sclerosis. No displaced fracture. Sacroiliac joint is unremarkable. No widening of the pubic symphysis. SOFT TISSUES: Unremarkable. No soft tissue swelling or gas. RAD/Hips B/L min 2 views w/ Pelvis IMPRESSION: No acute osseous abnormalities. There are severe degenerative changes in left hip with joint space narrowing and sclerosis. Electronically Signed: Michael Galloway MD at 2:51 EDT ,
== END | disposition home or self-care (01) ==
LOC: MTRAD 14:10
PROVIDERS: PCP Family Medicine; Referring Provider Family Medicine; Visit Provider Family Medicine
DX: M16.12 Unilateral primary osteoarthritis, left hip (principal)
CPT/HCPCS: 73521

== ENCOUNTER → 2022-07-31 | Outpatient (CLI) | payer OTHER, SELFPAY ==
[2022-07-31 13:52] LABS: Anion Gap 8 (5-15); BUN 15 mg/dL (7-18); BUN/Creat Ratio 21.2 RATIO (10-20); Calcium,Total 9.6 mg/dL (8.5-10.1); Chloride 104 mmol/L (98-107); Cholesterol 170 mg/dL (200); Creatinine, Serum 0.71 mg/dL (0.70-1.30); EST Glomerular Filtration Rate 118 mL/min (>60); Est Glom Filt Rate - Afr Amer 143 mL/min (>60); Glucose 117 mg/dL (74-106); High Density Lipoprotein 53 mg/dL; Sodium Level 139 mmol/L (136-145); Triglycerides 84 mg/dL; Very Low Density Lipoprotein 17 mg/dL (5-40)
== END | disposition home or self-care (01) ==
PROVIDERS: PCP Family Medicine; Referring Provider Family Medicine; Visit Provider Family Medicine
DX: I10 Essential (primary) hypertension (principal)
CPT/HCPCS: 36415; 80048; 80061

== ENCOUNTER → 2023-05-19 | Outpatient (CLI) | payer MEDICARE, OTHER, SELFPAY ==
--- NOTE | 2023-05-19 16:20 | RAD_ITS ---
STUDY: X-RAY CHEST REASON FOR EXAM: Male, 67 years old. chest pain TECHNIQUE: PA and lateral COMPARISON: None. FINDINGS: The lungs are clear and expanded. There is no demonstrated pleural abnormality. Normal size heart. Normal mediastinum and soha. Normal visualized pulmonary arteries. Normal visualized aortic arch and descending thoracic aorta. Dorsal spine demonstrates mild scoliosis and degenerative change. Normal visualized ribs, clavicles, and shoulders. There is no demonstrated abnormality of the visualized soft tissue structures of the upper abdomen. RAD/Chest PA and Lateral IMPRESSION: No acute cardiopulmonary pathology Electronically Signed: Kareem Crane MD at 17:39 EDT ,
[2023-05-19 16:22] LABS: Absolute Neutrophil Count 5.4 X10^3/uL (2.0-7.7); Basophil# 0.05 X10^3/uL; Basophil% 0.5 % (0-1); Hematocrit 41.4 % (40-54); Hemoglobin 14.2 g/dL (13.0-16.5); Lymphocyte % 33.7 % (19-41); Mean Corp Hgb Conc 34.3 g/dL (32-36); Mean Corpuscular Hgb 31.5 pg (27.0-32.0); Mean Corpuscular Volume 91.8 fL (80-94); Mean Platelet Vol. 8.2 fl (6.2-12.0); Monocyte# 0.96 X10^3/uL; Monocyte% 9.5 % (0-10); NRBC Flagged by Analyzer 0 % (0-5); Neutrophil # 5.44 X10^3/uL (2.7-7.7); Platelet Count 311 K/mm3 (150-450); RBC Distribution Width CV 13.3 % (11.6-14.6); RBC Distribution Width SD 45.1 fl (35.1-43.9); Red Blood Count 4.51 M/mm3 (4.6-6.2); White Blood Count 10.1 K/mm3 (4.4-11.0)
[2023-05-19 17:01] LABS: Troponin-I HS 9 pg/mL (3.0-78.0)
[2023-05-19 17:03] LABS: ALB/GLOB Ratio 1.4 RATIO (0.9-2.4); AST(SGOT) 53 U/L (15-37); Alanine Aminotransfer ALT/SGPT 56 U/L (16-61); Albumin, Serum 4.3 g/dL (3.2-5.0); Alkaline Phosphatase 92 U/L (45-117); Anion Gap 6 (5-15); BUN 9 mg/dL (7-18); BUN/Creat Ratio 14.8 RATIO (10-20); Calcium,Total 9.6 mg/dL (8.5-10.1); Chloride 104 mmol/L (98-107); Cholesterol 176 mg/dL (200); Creatinine, Serum 0.61 mg/dL (0.70-1.30); EST Glomerular Filtration Rate 140 mL/min (>60); Est Glom Filt Rate - Afr Amer 169 mL/min (>60); Glucose 105 mg/dL (74-106); High Density Lipoprotein 68 mg/dL; PSA,Total - Annual Screen 1.96 ng/mL (0.00-4.00); Potassium 3.5 mmol/L (3.5-5.1); Protein, Total 7.3 g/dL (6.4-8.2); Sodium Level 138 mmol/L (136-145); Triglycerides 97 mg/dL; Very Low Density Lipoprotein 19 mg/dL (5-40)
== END | disposition home or self-care (01) ==
PROVIDERS: PCP Family Medicine; Referring Provider Nurse Practitioner Family; Visit Provider Nurse Practitioner Family
DX: I10 Essential (primary) hypertension (principal); Z12.5 Encounter for screening for malignant neoplasm of prostate
CPT/HCPCS: 36415; 71046; 80053; 80061; 84153; 84484; 85025; G0103

== ENCOUNTER 2023-05-26 06:50 | Day surgery (SDC) | payer MEDICARE, OTHER, SELFPAY ==
--- NOTE | 2023-05-20 12:49 | PCM.HP.BLA ---
History and Physical Date of Admission: 05/26/23 Anish Herring is a 67-year-old man that is presenting to the cath labe today for a left heart catheterization. He has a history of paroxysmal atrial fibrillation, hypertension, hyperlipidemia and obstructive sleep apnea. He saw Dr. Kan in July of 2020 for an ablation. He has done well since then and says that he has only had occasional paroxysms of atrial fibrillation but nothing recently. He contacted our office on 05/19/2023 with exertional chest pressure. He also acknowledges on account of chest pressure that his activity level has been reduced. He denies any obvious atrial fibrillation via [employer]. He underwent laboratory testing that included a negative high-sensitivity troponin. On account of ongoing symptoms, it was recommended to proceed with a heart catheterization. He has not had any palpitations that he is aware of. He does not have any lightheaded/dizziness. Intake Vital Signs: See EMR Intake Visit Reasons: [facility] [employer] Equipment Mechanic Required: No Accompanied by: Self Is patient in pain?: No Allergies codeine Allergy (Verified 01/30/23 13:24) Rash Medications See EMR Ejection fraction %: 60 to 64 COUNTS INCLUDE 234 BEDS AT THE [facility] Medical History (Updated 01/30/23 @ 13:29 by Sivan Sheikh RN) Anxiety and depression Asthma Charcot's joint of foot Essential (primary) hypertension Essential (primary) hypertension Gout Hyperlipidemia Neuropathy New onset atrial fibrillation (02/2020) Obesity Obstructive sleep apnea Paroxysmal atrial fibrillation Postoperative atrial fibrillation (02/08/20) Surgical History (Updated 01/30/23 @ 13:29 by Sivan Sheikh RN) History of cardioversion (03/28/20) History of foot surgery History of radiofrequency ablation procedure for cardiac arrhythmia (05/25/20) History of total knee arthroplasty (02/08/20) Hx of cataract surgery Family History Father Hypertension Atrial fibrillationMother HypertensionGrandmother Diabetes maternal CancerGrandfather Cancer maternal Social History Smoking Status: Never smoker ROS Const Const: Negative for fatigue, weakness, headache(s), daytime sleepiness or difficulty sleeping Eyes Eyes: Negative for change in vision ENT ENT: Negative for headache(s), dizziness or Nosebleed/epistaxis Cardio Chest Pain: Yes Palpitations: No Edema: None Resp Respiratory: Negative for SOB with activity, SOB at rest, SOB orthopnea\SOB lying down or Cough GI GI: Negative nausea, vomiting or heartburn Neuro Neuro: Negative for dizziness, lightheadedness, near syncope, headache(s) or weakness Endo Endo: Negative for fatigue Cardiology Exam Const Appearance: cooperative, healthy appearing, no acute distress, well developed and well groomed Nutritional Appearance: average body habitus and well nourished Orientation: alert, awake and oriented x3 Head Head: normal to inspection, normocephalic and atraumatic Ears: hearing grossly normal bilaterally and external ears normal Nose: external nose normal, nares normal, nasal mucous membranes and turbinates normal, septum normal and no nasal discharge Face and Sinus: face symmetric Mouth: oral mucosae normal, tongue normal, oropharynx normal and moist mucous membranes Teeth and gingiva: dentition normal Throat: posterior oropharynx normal, tonsils normal and uvula midline Eyes General: appearance normal, both eyes and all related structures Eyelids: eyelids normal Conjunctivae: conjunctivae normal Pupils: PERRL, normal by confrontation and accommodation normal EOM: EOM intact bilaterally Neck Neck: normal visual inspection, trachea midline and no JVD JVD: +5 Carotids: normal carotid upstroke and bounding pulses Chest Chest inspection: normal inspection of the chest, symmetric chest movement and normal respiratory effort Auscultation: Bilateral: Clear to Auscultation Cardio Palpation: normal PMI Rate: regular rate Rhythm: regular rhythm Heart sounds: S1 normal, S2 normal and normal, physiologic split S2; Negative rub, gallop or murmur GI GI: normal to inspection, soft, no hepatosplenomegaly and bowel sounds present Neuro General: patient alert, patient awake, patient oriented x3, gait normal, moves all extremities and no focal sensory deficit Skin Skin: no rashes or lesions noted Extremities Pulses: Normal: Right Femoral Pulse, Left Femoral Pulse, Right Dorsalis Pedis Pulse, Left Dorsalis Pedis Pulse, Right Posterior Tibial Pulse, Left Posterior Tibial Pulse, Right Radial Pulse and Left Radial Pulse Lower Extremity Edema: None: Bilateral Musculoskel Musculoskeletal: No joint tenderness Psych Psychological: normal affect Supplemental Info Supplemental Information Echocardiogram from 07/10/2020 Interpretation Summary Normal LV size. Left ventricular systolic function is normal. The estimated ejection fraction is 60 %. The left atrium is moderately enlarged. Trisinus/trileaflet aortic valve. Mild (1+) aortic valve insufficiency. Pharmacologic myocardial perfusion stress test 10/26/2020 Conclusion: Normal pharmacologic myocardial perfusion stress test. Preserved ejection fraction. Electrophysiology-Ablation (AG) 05/25/20: Clinical arrhythmia outcome: successful Infranodal conduction was normal Supraventricular arrhythmias - ablation of atrial fibrillation was successful Assessment and Plan Assessment and Plan (1) Essential (primary) hypertension: Status: Chronic Plan: Blood pressure controlled on current medications. Will not make any changes. (2) Paroxysmal atrial fibrillation: Status: Chronic Comment: RFA 05/25/20 Plan: Pt has not had any symptoms, will continue with current dose of rate limiting medication. He did undergo an ablation. He does have a Vicente vas score of 2. We will continue to monitor. (3) Hyperlipidemia: Status: Chronic Plan: His most recent lipid profile demonstrates a total cholesterol 170 HDL of 53 LDL of 100. We will continue his current medical therapy. (4) Chest pain Status Plan: He underwent stress test in October 2020 that was negative for ischemia. Last echocardiogram July 2020 showed an ejection fraction of 60%. On account of ongoing exertional symptoms, he will proceed with heart catheterization. Depending on results, further recommendation will be made.
[2023-05-23 13:25] VITALS: BMI 28.8
--- NOTE | 2023-05-26 08:37 | CL.D_ITS ---
Patient Name: IDRIS AGRAWAL Study Date: 05/26/2023 Performing: Randal Friedman MD Ht: 73 inches 185.42 cm : 1955 Wt: 219.01 lbs 99.34 kg Age: 67 Gender: male BSA: 2.24 PROCEDURE(S) PERFORMED DC01-(20702)LHC/COR/LV CLINICAL PROFILE AND INDICATIONS Indications: Worsening Angina Heart Failure: None Stress/Imaging Stress/Image Study Performed: No CAD Presentations: Unstable angina. CONCLUSIONS Normal left main, LAD, and circumflex artery and right coronary artery. Origin of the ramus intermedius is not very well-visualized. The rest of the vessel appears to be normal. Preserved ejection fraction. RECOMMENDATIONS Medical therapy and recommend CT angio to visualize the origin of the ramus intermedius. DESCRIPTION OF PROCEDURE The patient arrived to the procedure lab. The risks and benefits of the procedure as well as a full description of our services here and current unavailability of surgical backup were fully explained to the patient and/or their significant other prior to the catheterization. The Timeout was completed, verifying the correct patient and procedure. The patient's procedural site was prepped and draped in the usual fashion. Local anesthetic was given subcutaneously to right radial region with Lidocaine 2%. Using a modified Seldinger technique, arterial access was obtained via the right radial artery, a 6Fr sheath was inserted. Left Coronary Artery selective angiography was performed in multiple views using a 5 Fr. 4.0 [place] catheter. Right Coronary Artery selective angiography was then performed in multiple views using a 5 Fr. 4.0 [place] catheter. Right Coronary Artery selective angiography was then performed in multiple views using a 5 Fr. JR 5 catheter. Left Ventriculography was performed in WOLF projection using a 5 Fr. Pigtail catheter. LV to AO pullback pressures were then recorded.The arterial sheath was pulled and a TR Band was applied for hemostasis w/10ml air CORONARY ANGIOGRAPHY DOMINANCE: Right Dominant LEFT HEART ASSESSMENT Left Ventricular Ejection Fraction: by LV Gram 60 % Normal LV wall motion Normal Left Ventricular systolic function LEFT MAIN: Angiographically normal LEFT ANTERIOR DESCENDING ARTERY: Mild luminal irregularities less than 30% CIRCUMFLEX ARTERY: Mild luminal irregularities less than 30% RAMUS: Difficult to visualize ostium with probable 60% long stenosis noted. Rest of the vessel appears to be normal. RIGHT CORONARY ARTERY: Mild luminal irregularities COMPLICATIONS No Complications PROCEDURE MEDICATIONS Versed 1 mg IV Fentanyl 50 mcg IV Versed 1 mg IV Versed 1 mg IV Oxygen: 2 L/min via nasal cannula Heparin given IA 05/26/2023 08:03:12 Verapamil 2.5mg, 3000 units of Heparin given IA 05/26/2023 08:03:12 IV Bolus: .9 NaCl 500 ml total 05/26/2023 08:01:31 SUMMARY OF HEMODYNAMIC DATA Time AIR REST ECG 07:15:45 AO 78/51 (65) SA 08:05:07 LV 82/0, 8 08:20:50 LV 80/3, 9 08:20:58 LV 81/0, 7 08:21:46 LV 81/0, 7 08:21:47 LVp 82/0, 7 08:21:52 LVp 83/0, 8 08:21:59 AOp 90/-45 (44) 08:22:06 08:34:48 Signed By Randal Friedman MD On 05/26/2023 08:36:14 Randal Friedman MD
== END 2023-05-26 10:20 | disposition home or self-care (01) ==
PROVIDERS: PCP Family Medicine; Referring Provider Internal Medicine Cardiovascular Disease; Visit Provider Internal Medicine Cardiovascular Disease
DX: I25.110 Atherosclerotic heart disease of native coronary artery with unstable angina pectoris (principal); I48.0 Paroxysmal atrial fibrillation; I10 Essential (primary) hypertension; E78.5 Hyperlipidemia, unspecified; J45.909 Unspecified asthma, uncomplicated; G47.33 Obstructive sleep apnea (adult) (pediatric); Z79.51 Long term (current) use of inhaled steroids; Z79.899 Other long term (current) drug therapy; Z79.01 Long term (current) use of anticoagulants
CPT/HCPCS: 93005; 93458; 99152; 99153; J7040; Q9967; C1769; C1894

== ENCOUNTER 2023-07-16 07:44 | Outpatient (CLI) | payer MEDICARE, OTHER, SELFPAY ==
--- NOTE | 2023-07-16 07:54 | CT_ITS ---
STUDY: CT CHEST WITH CONTRAST REASON FOR EXAM: Male, 67 years old. CHEST PAIN RADIATION DOSAGE (If Supplied By Facility): CTDIvol = ( 36.29 ) mGy, DLP = ( 1251.92 ) mGycm TECHNIQUE: Transaxial imaging was performed following intravenous administration of IV 50mL Isovue-370. Cardiac Overread examination. Individualized dose optimization techniques were used for this CT. COMPARISON: No relevant priors. FINDINGS: CHEST Findings suggestive of chronic interstitial scarring. There is no demonstrated pleural abnormality. There are calcifications of the coronary arteries. There are small lymph nodes within the mediastinum, which are normal in size and morphology most compatible with reactive lymph hyperplasia. Normal hilar regions. Normal unenhanced pulmonary arteries. Normal aorta arch and descending thoracic aorta. There are degenerative changes of the thoracic spine. There is no demonstrated abnormality of the visualized upper abdomen. CT/Limited Chest CT Cardiac Only IMPRESSION: Coronary artery calcification. Findings suggestive of chronic interstitial scarring. Electronically Signed: Stanislav Piper MD at 14:56 EDT ,
[2023-07-16 08:03] VITALS: BP 100/70; PULSE 62; RESP 16; TEMP 36.7; O2SAT 95; BMI 30.4
[2023-07-16 08:11] VITALS: BP 92/70; PULSE 59; RESP 14; O2SAT 95
--- NOTE | 2023-08-11 11:57 | CCTA.WCONT ---
CCTA w/Cont Coronary Arteries Date of Study:: 07/16/23 Evaluate the origin of the circumflex artery/ramus intermedius Coronary Calcium Scoring: High-resolution Computed Tomographic imaging of the chest was performed on [07/16/2023], with particular attention paid to the coronary arteries. Intravenous contrast agent was administered per protocol and images reconstructed and displayed. LEFT MAIN CORONARY ARTERY: This arose from the left main coronary cusp with no significant stenosis present [] LEFT ANTERIOR DESCENDING CORONARY ARTERY: Mild to moderate calcification noted in the proximal and mid segment with less than 50% stenosis present [] LEFT CIRCUMFLEX CORONARY ARTERY: Nondominant vessel with no significant stenosis noted [ Ramus intermedius] -this vessel arises between the left anterior descending artery and circumflex artery with a proximal 60% stenotic lesion. This appears to be long and involving the ostium taking off from the left main coronary artery. The rest of the vessel appears to be free of significant disease. RIGHT CORONARY ARTERY: Dominant right coronary artery with proximal mild calcification noted and mild eccentric calcification present and mild stenosis present Conclusion: Mild calcification noted of the proximal left anterior descending artery and the right coronary artery with no high-grade stenosis Ramus intermedius vessel with moderately severe long ostial stenosis.
== END 2023-07-16 23:59 | disposition home or self-care (01) ==
LOC: CT 07:46
PROVIDERS: PCP Family Medicine; Referring Provider Internal Medicine Cardiovascular Disease; Visit Provider Internal Medicine Cardiovascular Disease
DX: R07.9 Chest pain, unspecified (principal); Q24.5 Malformation of coronary vessels
CPT/HCPCS: 75574; 76380; Q9967

== ENCOUNTER → 2024-01-05 | Outpatient (CLI) | payer MEDICARE, OTHER, SELFPAY ==
[2024-01-05 12:38] LABS: Absolute Lymphocyte Count 3.14 X10^3/uL (0.83-4.51); Absolute Neutrophil Count 4.7 X10^3/uL (2.0-7.7); Basophil# 0.06 X10^3/uL; Basophil% 0.6 % (0-1); Eosinophil# 0.32 X10^3/uL; Eosinophils% 3.5 % (0-5); Hematocrit 40.8 % (40-54); Lymphocyte # 3.14 X10^3/ul (0.83-4.51); Mean Corp Hgb Conc 34.3 g/dL (32-36); Mean Corpuscular Hgb 32.4 pg (27.0-32.0); Mean Corpuscular Volume 94.4 fL (80-94); Mean Platelet Vol. 8.7 fl (6.2-12.0); Monocyte# 0.99 X10^3/uL; Monocyte% 10.7 % (0-10); NRBC Flagged by Analyzer 0 % (0-5); Neutrophil % 50.9 % (47-70); Platelet Count 319 K/mm3 (150-450); RBC Distribution Width SD 44.8 fl (35.1-43.9); Red Blood Count 4.32 M/mm3 (4.6-6.2); White Blood Count 9.2 K/mm3 (4.4-11.0)
[2024-01-05 13:09] LABS: Anion Gap 7 (5-15); BUN 13 mg/dL (7-18); BUN/Creat Ratio 16.7 RATIO (10-20); Calcium,Total 9.8 mg/dL (8.5-10.1); Chloride 102 mmol/L (98-107); Cholesterol 196 mg/dL (200); Creatinine, Serum 0.78 mg/dL (0.70-1.30); EST Glomerular Filtration Rate 105 mL/min (>60); Est Glom Filt Rate - Afr Amer 127 mL/min (>60); Glucose 122 mg/dL (74-106); High Density Lipoprotein 90 mg/dL; Potassium 4.3 mmol/L (3.5-5.1); Sodium Level 137 mmol/L (136-145); Triglycerides 48 mg/dL; Very Low Density Lipoprotein 10 mg/dL (5-40)
== END | disposition home or self-care (01) ==
PROVIDERS: PCP Family Medicine; Referring Provider Family Medicine; Visit Provider Family Medicine
DX: Z01.818 Encounter for other preprocedural examination (principal); I10 Essential (primary) hypertension
CPT/HCPCS: 36415; 80048; 80061; 85025

== ENCOUNTER → 2024-03-22 | Outpatient (CLI) | payer MEDICARE, OTHER, SELFPAY ==
--- NOTE | 2024-03-22 15:32 | RAD_ITS ---
STUDY: X-RAY - ABDOMEN/PELVIS REASON FOR EXAM: Male, 68 years old. NAUSEA AND VOMITING TECHNIQUE: Single AP view of the abdomen / pelvis. COMPARISON: None. FINDINGS: Normal visualized lung bases. There is an unremarkable bowel gas pattern. There is no demonstrated free abdominal air. The visualized liver, spleen and kidneys are grossly normal in size and morphology. Normal soft tissue structures. Normal visualized osseous structures. RAD/Abdomen Single View IMPRESSION: Normal x-ray examination of the abdomen and pelvis. Electronically Signed: Jamarcus Dickson MD at 19:00 EST ,
== END | disposition home or self-care (01) ==
LOC: MTRAD 15:30
PROVIDERS: PCP Family Medicine; Referring Provider Family Medicine; Visit Provider Family Medicine
DX: R11.2 Nausea with vomiting, unspecified (principal)
CPT/HCPCS: 74018

== ENCOUNTER 2024-05-24 10:30 | Outpatient (RCR) | payer MEDICARE, OTHER, SELFPAY ==
--- NOTE | 2024-03-31 11:25 | HP.PTEVAL ---
Patient's Visit Information Visit Information Visit Information: IDRIS AGRAWAL III is a 68 year old M referred to Physical Therapy by Dr. Leno Blevins MD with a diagnosis of LUMBOSACRAL WITH RADICULOPATHY. Date of Evaluation: 03/31/24 Physical Therapist: Yasir Loaiza, PT, Cert MDT, OCS Visit Plan Frequency: 2x /Week Duration: 4 Weeks Plan: PT INTERVENTIONS DLS ,POSTURAL EX'S ,LE FLEXABILITY ,LUMBAR FLEXION ,AND MODALITIES Subjective Subjective: This 68 y/o male presents to physical therapy with lumbar radiculopathy in left leg. Patient had symptoms ~ 2 weeks developed lumbar pain using building custodian. Patient seen family DR Rosenthal . Patient seen [facility] recommended ,PT and x-rays DDD and spondylosis .Patient pain located left LS with radicular symptoms. Described as ache sharp. Patient aggravating factors standing ,supine,walking , Alleviating rest ,bending. Patient had foot surgery Jan 12 and was 8 weeks with NWB. Coughing/sneezing-. Bowel/bladder-. C/O paresthesia/tingling + with neuropathy in feet with numbness. . May pain management. Patient comorbidities contributor to condition. Pain affects sleeping.Patient condition affects QOL and function/houseworks. Patient goals to decrease pain SOCIAL: VOCATION: :RETIRED Pain Left Back: Pain Intensity (Out of 10): 2 Pain Intensity Range: 10 Objective Objective: POSTURE: mild forward posture GAIT: reciprocal pattern mild forward posture trunk flexed PALAPTION: unremarkable NEURO: c/o paresthesia/tingling feet with neuropathy , reflexes L3-4,L4-5,L5-S 1 1/3 FLEXABILITY: hamstrings min tight LUMBAR ROM: min loss ,extension severe pain ,side glides mod loss MMT: quads/hams 4/5 , hip flexion 4-/5 ,ankle ,ankle 5/5 Special Tests L/S Slump test left side: Negative L/S Slump test right side: Negative L/S Left Straight Leg Raise: Negative L/S Right Straight Leg Raise: Negative Lumbar Standing: Flexion - Mechanical Response: No effect Lumbar Standing: Flexion - Symptoms During Testing: No effect Lumbar Standing: Flexion - Symptoms After Testing: No effect Lumbar Standing: Extension - Mechanical Response: No effect Lumbar Standing: Extension - Symptoms During Testing: Increases Lumbar Standing: Extension - Symptoms After Testing: Worse Lumbar Standing: Right Side Glides - Mechanical Response: No effect Lumbar Standing: Right Side [place] - Symptoms During Testing: No effect Lumbar Standing: Right Side [place] - Symptoms After Testing: No effect Lumbar Standing: Left Side [place] - Mechanical Response: No effect Lumbar Standing: Left Side [place] - Symptoms During Testing: Increases Lumbar Standing: Left Side [place] - Symptoms After Testing: No worse Balance/Special Test Scores Oswestry Low Back Score: 26 Goals Goal 1:: I with HEP for back Goal Time Frame: 4-6 Weeks Goal 2:: Patient to improve back oswestry sore by 5 points to improve QOL and function Goal Time Frame: 4-6 Weeks Goal 3:: Patient to improve lumbar ROM for function of recovery to pu on shoes and walking Goal Time Frame: 4-6 Weeks Goal 4:: Patient be able to walk and stand > 15 mins to perform ADLS and housework tasks Goal Time Frame: 4-6 Weeks Goal 5:: Patient to improve back oswestry score by 5 points to improve QOL Goal Time Frame: 4-6 Weeks Rehabilitation Potential Physical Therapy Diagnosis: This patient appears to have stenosis with pain worse with positioning and motion testing with increase extension worse with standing /walking better with flexion thus benefit from skilled PT Rehabilitation Potential: Good Anticipated Interventions Patient/Client Instruction: Educate patient on: Condition and Plan of Care For the Purpose of:: To decrease pain, To increase ROM, To improve muscle performance and motor function, To improve ability to perform ADL's, To increase tolerance to activity/condition/position, To improve ability of physical actions for home/community/work/leisure, To improve gait and locomotor functions, To improve health of tissue, To decrease soft tissue restriction and To improve tolerance to ADL's Therapeutic Exercise to Include: Strength training, Endurance training, Postural training, Flexibilty training and Dynamic Lumbar Stabilization Comment: BLE For the Purpose of:: To decrease pain, To increase ROM, To improve muscle performance and motor function, To improve ability to perform ADL's, To increase tolerance to activity/condition/position, To improve ability of physical actions for home/community/work/leisure, To improve health of tissue, To decrease soft tissue restriction and To increase flexibility/ROM TENS: Yes IF ES: Yes Cryotherapy (ice pack, ice massage): Yes Thermo therapy (hot pack): Yes Ultrasound (thermal/non thermal): Yes For the Purpose of:: To decrease pain, To increase ROM, To improve health of tissue, To decrease soft tissue restriction, To increase flexibility/ROM, To improve endurance and To reduce risk of recurrence Text: Thank you for the opportunity to evaluate your patient. For Medicare and Medicare HMO plans, please review the plan of care and approve it. It will need to be FAXED BACK to us at [phone] for Medicare purposes. For Medicare only, by signing this I certify the plan of care. Please let me know if there are questions or concerns regarding this plan of care. Physician Signature: Date:
--- NOTE | 2024-04-29 14:52 | HP.PTREVAL ---
Re-Evaluation Intro: Dr. Leno Blevins MD, It has been my pleasure to treat IDRIS AGRAWAL III over the last 9 visits for LUMBOSACRAL WITH RADICULOPATHY. Please see the progress note below for an update on the physical therapy plan of care! Subjective Subjective: Patient is helping , no back or leg symptoms ,but have difficulty feeling sleeping at night Objective Objective/Function: *Patient will benefit from skilled PT to decrease pain ,with patient overall progressing towards goals* POSTURE: mild forward posture GAIT: reciprocal pattern mild forward posture trunk flexed PALAPTION: unremarkable NEURO: denies paresthesia/tingling feet with neuropathy , reflexes L3-4,L4-5,L5-S 1 / FLEXABILITY: hamstrings min tight LUMBAR ROM: min loss ,extension mod/severe pain ,side glides mod loss MMT: quads/hams 4/5 , hip flexion /5 ,ankle ,ankle 5/5 Plan Plan Plan: PT INTERVENTIONS DLS ,POSTURAL EX'S ,LE FLEXABILITY ,LUMBAR FLEXION ,AND MODALITIES Balance/Gait/Functional tests Balance/Special Test Scores Oswestry Low Back Score: 9 Goals Goals Goal 1:: I with HEP for back Goal Time Frame: 4-6 Weeks Goal Progress: Progressing Goal 2:: Patient to improve back oswestry sore by 5 points to improve QOL and function( new goal) Goal Time Frame: 4-6 Weeks Goal Progress: Progressing Goal 3:: Patient to improve lumbar ROM for function of recovery to pu on shoes and walking Goal Time Frame: 4-6 Weeks Goal Progress: Progressing Goal 4:: Patient be able to walk and stand > 15 mins to perform ADLS and housework tasks Goal Time Frame: 4-6 Weeks Goal 5:: Patient to demonstrate 70% improvement with function and less pain Goal Time Frame: 4-6 Weeks Anticipated Interventions Anticipated Interventions Patient/Client Instruction: Educate patient on: Condition and Plan of Care For the Purpose of:: To decrease pain, To increase ROM, To improve muscle performance and motor function, To improve ability to perform ADL's, To increase tolerance to activity/condition/position, To improve ability of physical actions for home/community/work/leisure, To improve gait and locomotor functions, To improve health of tissue, To decrease soft tissue restriction and To improve tolerance to ADL's Therapeutic Exercise to Include: Strength training, Endurance training, Postural training, Flexibilty training and Dynamic Lumbar Stabilization Comment: BLE For the Purpose of:: To decrease pain, To increase ROM, To improve muscle performance and motor function, To improve ability to perform ADL's, To increase tolerance to activity/condition/position, To improve ability of physical actions for home/community/work/leisure, To improve health of tissue, To decrease soft tissue restriction and To increase flexibility/ROM TENS: Yes IF ES: Yes Cryotherapy (ice pack, ice massage): Yes Thermo therapy (hot pack): Yes Ultrasound (thermal/non thermal): Yes For the Purpose of:: To decrease pain, To increase ROM, To improve health of tissue, To decrease soft tissue restriction, To increase flexibility/ROM, To improve endurance and To reduce risk of recurrence Re-Evaluation Ending Re-evaluation ending: Please do not hesitate to contact me at [phone] by phone or if you have questions or concerns regarding this new plan of care! Sincerely, Yasir Loaiza, PT, Cert MDT, OCS
--- NOTE | 2024-07-07 16:06 | HP.PTDCSUM ---
Discharge Summary D/C summary: It has been my pleasure to treat IDRIS AGRAWAL III referred by Dr. Leno Blevins MD, with the diagnosis of LUMBOSACRAL WITH RADICULOPATHY for a total of 16 visit(s). Discharge Date: Please see the following information for a summary of their discharge status. Subjective Subjective: Plan to be on Vacation [address] Escobar orthopedic surgeon 2nd opinion Plan to see Joshua Patient has had no pain in leg ,just tightness Patient can have pain with lifting Pain Left Back: Pain Intensity (Out of 10): 0 Overall Improvement % Improvement: 50 Objective Objective/Function: GAIT: reciprocal pattern mild forward posture trunk flexed PALAPTION: unremarkable NEURO: denies paresthesia/tingling feet with neuropathy , reflexes L3-4,L4-5,L5-S 1 1/3 FLEXABILITY: hamstrings min tight LUMBAR ROM: min loss ,extension mod/severe pain ,side glides mod loss MMT: quads/hams 4/5 , hip flexion 4/5 ,ankle ,ankle 5/5 Goals Goal 1:: I with HEP for back Goal Progress: Progressing Goal 2:: Patient to improve back oswestry sore by 5 points to improve QOL and function( new goal) Goal Progress: Progressing Goal 3:: Patient to improve lumbar ROM for function of recovery to pu on shoes and walking Goal Progress: Progressing Goal 4:: Patient be able to walk and stand > 15 mins to perform ADLS and housework tasks Goal 5:: Patient to demonstrate 70% improvement with function and less pain Plan Plan: SEE 2ND OPINION D/C D/C Information d/c sentence: If there are questions or concerns regarding this patient's physical therapy, please feel free to call me at [phone]. Thank you for the referral of this patient. Sincerely, Yasir Loaiza, PT, Cert MDT, OCS Balance/Gait/Functional tests Balance/Special Test Scores Oswestry Low Back Score: 8 Improvement % Improvement: 50
== END 2024-05-24 19:00 | disposition home or self-care (01) ==
LOC: PT 10:30
PROVIDERS: PCP Family Medicine; Referring Provider Orthopaedic Surgery Orthopaedic Surgery of the Spine; Visit Provider Orthopaedic Surgery Orthopaedic Surgery of the Spine
DX: M47.27 Other spondylosis with radiculopathy, lumbosacral region (principal)
CPT/HCPCS: 97110; 97162; 97530

== ENCOUNTER → 2024-09-10 | Outpatient (CLI) | payer MEDICARE, OTHER, SELFPAY ==
[2024-09-10 13:10] LABS: AST(SGOT) 49 U/L (<=37); Alanine Aminotransfer ALT/SGPT 38 U/L (<=46); Albumin, Serum 4.5 g/dL (3.4-4.8); Alkaline Phosphatase 105 U/L (40-129); Anion Gap 12 (5-15); BUN 13 mg/dL (4-19); BUN/Creat Ratio 18.0 RATIO (10-20); Calcium,Total 10.0 mg/dL (7.6-11.0); Carbon Dioxide 25.0 mmol/L (21.0-32.0); Chloride 97 mmol/L (98-108); Cholesterol 189 mg/dL (<=200); Globulin 2.4 g/dL (2.2-4.2); Glucose 112 mg/dL (70-99); Low Density Lipoprotein Calc. 95 mg/dL; Potassium 4.2 mmol/L (3.3-5.1); Triglycerides 51 mg/dL; Very Low Density Lipoprotein 10 mg/dL (5-40); cholesterol:hdl ratio screen 2.27
== END | disposition home or self-care (01) ==
LOC: MTLAB 09:46
PROVIDERS: PCP Family Medicine; Referring Provider Family Medicine; Visit Provider Family Medicine
DX: I10 Essential (primary) hypertension (principal)
CPT/HCPCS: 36415; 80053; 80061